=== PATIENT | male | born 2005 | race Caucasian/White ===

== ENCOUNTER 2023-12-13 18:42 | Emergency (ER) | payer OTHER ==
[2023-12-13] MEDS ORDERED: Lorazepam 2 MG/ML VIAL ONE ×2 (19:35→20:58)
[2023-12-13] MEDS ORDERED: Sodium Chloride 0.9% 500 ML ONE (19:35)
[2023-12-13 19:58] LABS: Anion Gap 15 mmol/L (10-20); BUN (Urea Nitrogen) 12 mg/dL (8.9-20.6); CK (CPK) 163 U/L (30-200); Calc. Creatinine Clearance 0 mL/min (70-130); Calcium 9.2 mg/dL (7.8-10.44); Carbon Dioxide 25 mmol/L (22-29); Chloride 104 mmol/L (98-107); Estimated GFR 126; Glucose 90 mg/dL (70-105); Magnesium 2.3 mg/dL (1.7-2.2); Potassium 3.4 mmol/L (3.5-5.1); Sodium 141 mmol/L (136-145)
[2023-12-13 20:04] LABS: Troponin I Less than 0.010 ng/mL (< 0.028)
== END 2023-12-13 21:56 | disposition home or self-care (01) ==
LOC: MADERS 18:42
DX: F15.129 Other stimulant abuse with intoxication, unspecified (principal)
CPT/HCPCS: 80048; 82550; 83735; 84484; 93005; 96374; 96376; J2060; J7030